=== PATIENT | male | born 1995 | race Caucasian/White ===

== ENCOUNTER 2017-05-30 17:51 | Emergency (ER) | payer OTHER ==
[~2017-05-30] VITALS: Ht 160 cm; Wt 66.3 kg
[2017-05-30] MEDS ORDERED: LISI-660 PO (17:53)
[2017-05-30 18:19] VITALS: BP 139/95
[2017-05-30] MEDS ORDERED: HYDROCODONE/ACETAMINOPHEN 10-325 MG TABLET PO ONE (18:30)
== END 2017-05-30 18:58 | disposition home or self-care (01) ==
LOC: EMS 17:52
DX: K02.9 Dental caries, unspecified (principal); I10 Essential (primary) hypertension
CPT/HCPCS: 99283